=== PATIENT | male | born 1975 | race Caucasian/White ===

== ENCOUNTER 2016-08-27 10:05 | Day surgery (SDC) | payer OTHER ==
[~2016-08-27] VITALS: Ht 198.1 cm; Wt 145.0 kg
[~2016-08-27 10:05] MED LIST: ATORVASTATIN CA40 MG PO; DILTIAZEM 24HR300 MG PO; ELIQUIS5 MG PO; METOPROLOL TART25 MG PO; TRULICITY1.5 MG/0.5 SC; VALSARTAN320 MG PO; XYZAL5 MG PO
[2016-08-27 11:18] LABS: POINT-OF-CARE METER ID UU13113696
== END 2016-08-27 12:39 | disposition home or self-care (01) ==
LOC: CATH 10:05
PROVIDERS: Internal Medicine Cardiovascular Disease
PROC: 5A2204Z Restoration of Cardiac Rhythm, Single (ICD-10-PCS; principal; 2016-08-27)
DX: I48.1 Persistent atrial fibrillation (principal); I10 Essential (primary) hypertension; E11.9 Type 2 diabetes mellitus without complications; E78.2 Mixed hyperlipidemia; Z79.01 Long term (current) use of anticoagulants; Z82.49 Family history of ischemic heart disease and other diseases of the circulatory system; Z87.891 Personal history of nicotine dependence
CPT/HCPCS: 82948; 93005; J2250

== ENCOUNTER 2017-04-12 23:38 | Emergency (ER) | payer OTHER ==
[~2017-04-12] VITALS: Ht 198.1 cm; Wt 140.9 kg
[2017-04-13] MEDS ORDERED: PERCOCET 5/31 TABLET PO (01:31)
[2017-04-13 02:23] VITALS: BP 102/58
== END 2017-04-13 02:28 | disposition home or self-care (01) ==
LOC: EME 23:38
DX: S82.841A Displaced bimalleolar fracture of right lower leg, initial encounter for closed fracture (principal); W01.0XXA Fall on same level from slipping, tripping and stumbling without subsequent striking against object, initial encounter; I48.91 Unspecified atrial fibrillation; I10 Essential (primary) hypertension; E78.5 Hyperlipidemia, unspecified; E11.9 Type 2 diabetes mellitus without complications; G47.30 Sleep apnea, unspecified; Z79.01 Long term (current) use of anticoagulants
CPT/HCPCS: 73600; 73610; 99281; 99285; J1885; J2250; J2405; J3010; J7030

== ENCOUNTER 2017-04-22 10:08 | Day surgery (SDC) | payer OTHER ==
[~2017-04-22] VITALS: Ht 198.1 cm; Wt 142.8 kg
[~2017-04-22 10:08] MED LIST changes: +PERCOCET 5/31 TABLET PO
[2017-04-22] MEDS ORDERED: GLUCOPHAGE1000 MG PO (10:41)
[2017-04-22 10:42] VITALS: BP 128/85
[2017-04-22 16:50] VITALS: BP 121/64
[2017-04-22 17:53] VITALS: BP 150/79
== END 2017-04-22 18:01 | disposition home or self-care (01) ==
LOC: SDC 10:08
PROVIDERS: Orthopaedic Surgery
DX: S82.401A Unspecified fracture of shaft of right fibula, initial encounter for closed fracture (principal); W18.09XA Striking against other object with subsequent fall, initial encounter; Y93.01 Activity, walking, marching and hiking; I10 Essential (primary) hypertension; I48.91 Unspecified atrial fibrillation; G47.30 Sleep apnea, unspecified; E11.9 Type 2 diabetes mellitus without complications; Z79.01 Long term (current) use of anticoagulants
CPT/HCPCS: 73610; 76000; 82948; C1713; J0131; J0330; J0690; J1170; J2250; J2405; J2710; J3010; S0020